=== PATIENT | male | born 1935 | race Caucasian/White ===

== ENCOUNTER 2020-03-08 09:59 | Observation (INO) | payer OTHER ==
[~2020-03-08] VITALS: Ht 180.3 cm; Wt 96.2 kg
[~2020-03-08 09:59] MED LIST: ANT12.5 PO; ASPI-COR81 M3; ASPIR 8181 MG PO; AZOR 10-20 MG1 EACH PO; BENICAR HCT1 TA1 PO; ISOSORBIDE MONO60 MG PO; K-TAB10 MEQ PO; LANTI; LASIX20 MG PO; LIPITOR40 MG PO; METOPROLOL SUC100 M2 PO; NOVI
[2020-03-08 12:02] LABS: PLATELET COUNT 217 x10^3mcL (130-400); RED CELL DISTRIBUTION WIDTH 13.1 % (11.5-14.5)
[2020-03-08 12:17] LABS: microscopic required? YES; urine erythrocyte TRACE (NEGATIVE)
[2020-03-08 13:19] LABS: ALBUMIN 3.4 g/dL (3.4-5.0); ALKALINE PHOSPHATASE 114 U/L (46-116); ALT/SGPT 13 U/L (16-63); AST/SGOT 18 U/L (15-37); BILIRUBIN TOTAL 0.7 mg/dL (0.20-1.00); CALCIUM 9.3 mg/dL (8.5-10.1); CHLORIDE SERUM 102 mmol/L (98-107); CREATININE SERUM 1.1 mg/dL (0.7-1.3); GLUCOSE SERUM 192 mg/dL (74-106); POTASSIUM SERUM 4.3 mmol/L (3.5-5.1); SODIUM SERUM 139 mmol/L (136-145); TOTAL PROTEIN, SERUM 7.3 g/dL (6.4-8.2)
--- NOTE | 2020-03-08 13:25 | NUR ---
PT RESTING IN BED WITH NO SIGNS OF DISTRESS.
--- NOTE | 2020-03-08 14:52 | NUR ---
ATTEMPTED TO CALL REPORT. WILL CALL BACK
--- NOTE | 2020-03-08 15:43 | NUR ---
REPORT CALLED TO SEA MICHAEL. PATIENT TRANSFERRED TO ROOM BY TELEHEALTH DIRECTOR WITH BELONGINGS.
[2020-03-08 15:59] VITALS: BP 191/71
--- NOTE | 2020-03-08 16:15 | NUR ---
DR. STOKES PAGED REGARDING PATIENTS BLOOD PRESSURE AND BLOOD SUGAR CHECKS
--- NOTE | 2020-03-08 16:23 | NUR ---
RECEIVED PATIENT IN BED ALERT AND ORIENTED, C/O BACK PAIN 02/19. NO DISTRESS NOTED. ORIENTED TO CALL LIGHT. MED-SURG PT. CUNHA INTACT W/ YELLOW URINE NOTED, GENO RN IN THE ROOM TO MEDICATE PT FOR PAIN. CALL LIGHT WITHIN REACH.
[2020-03-08 16:33] VITALS: BP 172/76
--- NOTE | 2020-03-08 17:26 | NUR ---
DISCUSSED BLOOD SUGAR CHECKS AND HIGH BLOOD PRESSURE WITH DR. STOKES AT PATIENT'S BEDSIDE.
--- NOTE | 2020-03-08 18:32 | NUR ---
PT LYING IN BED A/A, ORIENTED X4. BREATHING EQUAL/UNLABORED ON RA. MILD PAIN TO BACK. OPTIFOAM TO COCCYX. IV SITE WNL. NO ACUTE CHANGES/DISTRESS. BED IN LOW POSITION, CALL LIGHT IN REACH, SAFETY PRECAUTIONS IN PLACE. WILL CONTINUE TO MONITOR AND ENDORSE TO NIGHT NURSE
[2020-03-08 20:27] VITALS: BP 159/61
--- NOTE | 2020-03-09 03:46 | NUR ---
Pt in bed sleeping He woke up and came out of bed x2 this shift. Encouraged to get back in bed. will continue to monitor
[2020-03-09 05:18] VITALS: BP 139/57
[2020-03-09 07:12] LABS: BASOPHIL % 0.4 % (0-2); PLATELET COUNT 196 x10^3mcL (130-400); RED CELL DISTRIBUTION WIDTH 13.6 % (11.5-14.5)
--- NOTE | 2020-03-09 07:30 | NUR ---
RECEIVED PT FROM NIGHT NURSE. HE C/O 10/10 PAIN IN THE LUMBAR SPINE AREA. HE WAS GIVEN MORPHINE IVP ORDERED PRN. CUNHA CATHETER IN PLACE DRAINING YELLOW URINE. ON 2L O2 NC, SAO2 97%. DENIES SOB AND NO ACUTE RESPIRATORY DISTRESS NOTED. LS DIMINISHED IN BLL. ABLE TO AMBULATE WITH WALKER. LAC IV SITE PATENT AND WNL. SAFETY PRECAUTIONS IN PLACE. WILL CONTINUE TO MONITOR.
[2020-03-09 08:03] LABS: CALCIUM 8.5 mg/dL (8.5-10.1); CHLORIDE SERUM 105 mmol/L (98-107); CREATININE SERUM 1.4 mg/dL (0.7-1.3); GLUCOSE SERUM 151 mg/dL (74-106); POTASSIUM SERUM 4.2 mmol/L (3.5-5.1); SODIUM SERUM 138 mmol/L (136-145)
[2020-03-09 08:05] VITALS: BP 158/57
--- NOTE | 2020-03-09 08:08 | NUR ---
2100 bs- PT REFUSED NOT GIVEN
[2020-03-09 10:07] VITALS: BP 166/55
[2020-03-09 12:21] VITALS: BP 104/48
--- NOTE | 2020-03-09 12:30 | NUR ---
ENDORSED CARE TO NURSE WITHIN UNIT, PT TRANSFERRED TO R/O COVID 19. PT STABLE AT TIME OF TRANSFER. NO DISTRESS NOTED. ORDERS UP TO DATE AT TIME OF TRANSFER.
--- NOTE | 2020-03-09 12:30 | NUR ---
RECIEVED PATIENT FROM NURSE BROCK. PATIENT TRANSFERRED TO SOUTH AND PLACED ON ISOLATION PRECAUTIONS DUE TO PUI STATUS. DR. STOKES HAS PLACED PATIENT ON TELEMETRY MONITORING. SHEET ROCK APPLICATOR 12 APPLIED TO PATIENT. PATIENT IS CURRENTLY ON 2 LITER NASAL CANNULA AND OXYGEN SATURATION IS AT 96%. LUNG SOUNDS DIMINISHED TO BILATERAL LOWER LOBES. PATIENT IS AWAKE ALERT AND ORIENTED X 4. SAFETY PRECAUTIONS IN PLACE. CALL LIGHT WITHIN REACH. WILL CONTINUE TO PROVIDE CARE FOR PATIENT.
[2020-03-09 17:26] VITALS: BP 110/53
--- NOTE | 2020-03-09 18:32 | NUR ---
PATIENT CURRENTLY AWAKE ALERT AND ORIENTED X 4. PATIENT IS CURRENTLY ON ISOLATION PRECAUTIONS DUE TO RULE OUT COVID STATUS. PATIENT SWABBED FOR COVID-19 TODAY PER PHYSICIAN ORDER. CURRENTLY PENDING COVID-19 TEST RESULTS. PATIENT IS ON TWO LITER NASAL CANNULA AND IS SATURATING AT 96% ON TWO LITER. LUNG SOUNDS DIMINISHED TO BILATERAL LOWER LOBES. IV TO THE LEFT AC CURRENTLY SALINE LOCKED. PATIENT HAS GENERALIZED BACK PAIN AND WAS ADMINISTERED MEDICATION PER EMAR FOR PAIN. SAFETY PRECAUTIONS IN PLACE. CALL LIGHT WITHIN REACH. ALL QUESTIONS AND CONCERNS ADDRESSED. WILL ENDORSE ALL FURTHER CARE TO THE NOC NURSE.
--- NOTE | 2020-03-09 19:50 | NUR ---
PATIENT RESTING IN BED, A/O X4, VERBALLY RESPONSIVE, DENIES DIZZINESS. BREATHING E/U ON 2L NC, SPO2 97%, DENIES SOB AND COUGHING @ THIS TIME, ON DROPLET/CONTACT PRECAUTIONS FOR R/O COVID, COVID TEST SWAB TAKEN EARLIER TODAY, COVID TEST RESULT STILL PENDING. TELE #12, SR, HR 64, DENIES CHEST PAIN. ABD SOFT AND ROUND. NO EDEMA NOTED. CUNHA IN PLACE, DRAINNIG 150ML OF DARK SHAHRAM URINE @ THIS TIME. C/O OF 10/10 LOWER BACK PAIN, WILL GIVE MORPHINE PRN PER EMAR. IV LAC INTACT, FLUSHED AND SALINE LOCKED. CALL LIGHT WITHIN REACH, BED IN LOWEST POSITION. WILL CONTINUE TO MONITOR.
[2020-03-09 20:04] VITALS: BP 126/52
--- NOTE | 2020-03-09 20:14 | NUR ---
ENDORSED CARE TO NURSE WITHIN UNIT, PT TRANSFERRED TO R/O COVID 19. PT AAOX4 AND ABLE TO AMBULATE WITH ASSISTANCE. ON 2L O2 VIA NC. NO ACUTE DISTRESS NOTED. ORDERS UP TO DATE AT TIME OF TRANSFER.
--- NOTE | 2020-03-10 00:40 | NUR ---
PATIENT RESTING IN BED WITH EYES CLOSED. EVEN CHEST RISE AND FALL, ON 2L NC, SPO2 97%. TELE # 12, HR 82, SINUS RHYTHM. SHOWS NO SIGN OF PAIN OR DISTRESS. WILL CONTINUE MONITOR.
--- NOTE | 2020-03-10 01:35 | NUR ---
PATIENT C/O OF 10/10 LOWER BACK PAIN, WILL GIVE MORPHINE PRN PER EMAR.
[2020-03-10 06:14] VITALS: BP 137/62
[2020-03-10 06:21] LABS: BASOPHIL % 0.4 % (0-2); PLATELET COUNT 185 x10^3mcL (130-400); RED CELL DISTRIBUTION WIDTH 13.4 % (11.5-14.5)
--- NOTE | 2020-03-10 06:30 | NUR ---
PATIENT RESTING IN BED, BREATHING E/U ON 2L NC, SPO2 97%, DENIES SOB, ON DROPLET CONTACT PRECAUTIONS FOR R/O COVID, COVID TEST RESULT STILL PENDING. C/O OF LOWER BACK PAIN GAVE MORPHINE @ 0630. CUNHA IN PLACE, NO KINKS OR DEPENDENT LOOPS, PERFORMED CUNHA CARE, DRAINED 400 ML DARK SHAHRAM URINE. CALL LIGHT WITHIN REACH, NO SIGNFICANT CHANGES DURING SHIFT. WILL ENDORSE CARE TO DAY NURSE.
--- NOTE | 2020-03-10 07:09 | NUR ---
RECIEVED REPORT FROM [facility] NURSE. PATIENT CURRENTLY ON ISOLATION PRECAUTIONS PENDING COVID-19 TEST RESULTS. PATIENT IS OBSERVED RESTING IN BED. RESPIRATIONS EQUAL AND UNLABORED WITH SYMMETRICAL CHEST RISE AND FALL. PATIENT IS CURRENTLY ON ROOM AIR. OXYGEN SATURATION AT 94%. IV TO THE LAC CURRENTLY SALINE LOCKED. NO SIGNS/OR SYMPTOMS OF PAIN AT THIS TIME. SAFETY PRECAUTIONS IN PLACE. BED IN THE LOW POSITION. WILL CONTINUE TO PROVIDE CARE FOR PATIENT.
[2020-03-10 08:29] VITALS: BP 137/78
[2020-03-10 09:46] LABS: CALCIUM 8.4 mg/dL (8.5-10.1); CARBON DIOXIDE 24.6 mmol/L (21-32); CHLORIDE SERUM 103 mmol/L (98-107); CREATININE SERUM 1.9 mg/dL (0.7-1.3); GLUCOSE SERUM 150 mg/dL (74-106); POTASSIUM SERUM 4.5 mmol/L (3.5-5.1); SODIUM SERUM 137 mmol/L (136-145)
[2020-03-10 10:29] VITALS: Ht 180.3 cm; Wt 96.2 kg
[2020-03-10 11:39] VITALS: BP 137/67
--- NOTE | 2020-03-10 15:13 | NUR ---
PATIENT TAKEN DOWN FOR CT SCAN OF BACK. COVID TEST RESULT CAME BACK NEGATIVE TODAY. DR. STOKES AWARE.
--- NOTE | 2020-03-10 16:00 | NUR ---
PATIENT BACK IN ROOM FROM CT.
[2020-03-10 16:23] VITALS: BP 141/60
--- NOTE | 2020-03-10 17:26 | NUR ---
PATIENT CURRENTLY AWAKE ALERT AND ORIENTED X 4. COVID-19 TEST RESULT RETURNED NEGATIVE TODAY. DR. STOKES AWARE- NO CHANGE IN ORDERS. PATIENT RECIEVED CT OF BACK TODAY DUE TO REPORT OF PERSISTENT BACK PAIN. PATIENT PROVIDED WITH PAIN MEDICATION PER EMAR. PATIENT REMAINS ON 2 LITER NASAL CANNULA AND IS SATURATING WELL AT 99%. PATIENT REMAINS ON ZITHROMAX IV. BED IN THE LOW POSITION. FALL PRECAUTIONS IN PLACE. WILL ENDORSE ALL FURTHER CARE TO THE NOC NURSE.
--- NOTE | 2020-03-10 20:00 | NUR ---
PATIENT RESTING IN BED, A/O X4, VERBALLY RESPONSIVE. BREATHING E/U ON 2L NC, SPO2 98%, DENIES SOB, NEGATIVE COVID TEST RESULT. TELE #12, SR WITH BBB, HR 60, DENIES CHEST PAIN. OPTIFOAM @ [facility]. CUNHA INTACT, DRAINING YELLOW URINE, NO KINKS OR DEPENDENT LOOPS, C/O OF LOWER BACK PAIN, WILL GIVE PAIN MEDICATION PRN. IV LAC INTACT, FLUSHED AND SALINE LOCKED. CALL LIGHT WITHIN REACH, BED IN LOWEST POSITION. WILL CONTIUE TO MONITOR.
--- NOTE | 2020-03-10 21:15 | NUR ---
PATIENT HAS NEGATIVE COVID TEST RESULT, PATIENT TO BE TRANSFERRED TO ROOM [address] [place] [address]. GAVE REPORT TO ALEC BUI.
--- NOTE | 2020-03-10 21:25 | NUR ---
PATIENT TRANSFERRED TO [address] [place] ROOM [address].
--- NOTE | 2020-03-10 21:30 | NUR ---
PT RECIEVED FROM 2S. PT IN A POSITION OF COMFORT AT THIS TIME. DENIES PAIN OR DISCOMFORT. PT BREATHING E/U ON RA AT THIS TIME. BED AT LOWEST POSITION. CALL LIGHT WITHIN REACH. WILL CONTINUE TO MONITOR.
[2020-03-10 21:37] VITALS: BP 141/59
--- NOTE | 2020-03-11 | NUR ---
PT RESTING IN BED AT THIS TIME. DENIES PAIN OR DISCOMFORT. PT BREATHING E/U ON RA. NO S/S OF ACUTE DISTRESS AT THIS TIME. WILL CONTINUE TO MONITOR.
--- NOTE | 2020-03-11 03:47 | NUR ---
PT REFUSING TELE MONITORING AT THIS TIME. EDUCATED PT ON NEED FOR TELE MONITOR. PT CONTINUING TO REFUSE AT THIS TIME.
[2020-03-11 05:31] VITALS: BP 145/76
--- NOTE | 2020-03-11 06:22 | NUR ---
PT RESTING IN BED AT THIS TIME. PT HAD ONE EPISODE OF EMESIS AT THIS TIME. NO S/S OF ACUTE DISTRESS NOTED. ALL NEEDS AND CONCERNS ADDRESSED. PT PLACED ON 2L O2 AT THIS TIME. STILL REFUSING TELE MONITORING. WILL ENDORSE TO DAY NURSE.
--- NOTE | 2020-03-11 08:15 | NUR ---
RECEIVED PT. IN BED A/A/O X3. NO SOB, NO N/V NOTED. PT. DENIES ANY PAIN AT THIS TIME. IV SITE NOTED TO L AC. BED IN LOW POS., CALL LIGHT WITHIN REACH. SIDE RAILS UP X3.
[2020-03-11 08:18] LABS: BASOPHIL % 0.1 % (0-2); PLATELET COUNT 220 x10^3mcL (130-400)
[2020-03-11 08:23] LABS: CALCIUM 8.8 mg/dL (8.5-10.1); CARBON DIOXIDE 25.4 mmol/L (21-32); CHLORIDE SERUM 102 mmol/L (98-107); CREATININE SERUM 1.5 mg/dL (0.7-1.3); GLUCOSE SERUM 243 mg/dL (74-106); POTASSIUM SERUM 4.6 mmol/L (3.5-5.1); SODIUM SERUM 136 mmol/L (136-145)
[2020-03-11 08:59] VITALS: BP 176/69
[2020-03-11 10:58] VITALS: BP 152/70
[2020-03-11] MEDS ORDERED: ZIT250 PO (11:52)
[2020-03-11] MEDS ORDERED: ACETAMINOPHEN-H1 TA1 PO (11:54)
[2020-03-11 13:29] VITALS: BP 167/64
--- NOTE | 2020-03-11 15:00 | NUR ---
PT. IS BEING DISCHARGED HOME TODAY. SPOKE TO PT.'S CARE-IT SECURITY ADMINISTRATOR (CHUCHO) OVER THE PHONE REGARDING PT. BEING DISCHARGED HOME TODAY. CHUCHO STATED SHE WILL COME BETWWEN 5 AND 6 PM TO PICK PT. UP.
--- NOTE | 2020-03-11 17:30 | NUR ---
D/C HOME INSTRUCTIONS GIVEN TO PT. WHO VERBALIZED UNDERSTANDING. IV H/L TO L AC REMOVED. PRESCRIPTIONS GIVEN. TELE. MONITOR #12 REMOVED AND RETURNED TO TELE. MONITOR STATION. ALSO SPOKE TO PT.'S DAUGHTER KARYN JORDAN REGARDING PT.'S DISCHARGE INSTRUCTIONS OVER THE PHONE. DAUGHTER WAS MADE AWARE THAT PT. ALSO HAS A FOLLOW UP APPOINMENT WITH HIS PHYSICIAN ON 03/23/20 AFTER DISCHARGE. DAUGHTER VERBALIZED UNDERSTANDING.
[2020-03-11 17:53] VITALS: BP 143/66
--- NOTE | 2020-03-11 18:35 | NUR ---
PT.'S CARE-MALTHOUSE LABORER (CHUCHO) ARRIVED AT THE MAIN LOBBY. PT. IS BEING DISCHARGED IN STABLE CONDITION VIA WHEELCHAIR. ALL BELONGINGS SENT HOME WITH PT. UPON DISCHARGE.
== END 2020-03-11 18:35 | disposition home or self-care (01) ==
LOC: ED 09:59 → MU 13:49 → DU 03-09 12:43 → MU 03-09 12:51 → DU 03-09 13:38
PROVIDERS: Emergency Medicine; ADMIT Internal Medicine; ATTEND Internal Medicine
DX: M54.9 Dorsalgia, unspecified (principal); M47.816 Spondylosis without myelopathy or radiculopathy, lumbar region; J18.9 Pneumonia, unspecified organism; I10 Essential (primary) hypertension; E11.9 Type 2 diabetes mellitus without complications; Z20.828 Contact with and (suspected) exposure to other viral communicable diseases
CPT/HCPCS: 82962; 85378; G0378; J0456; J1650; J1815; J2270; J2405; J7030; J7050; J7512; Q0092; U0003-CS

== ENCOUNTER 2020-03-19 23:40 | Emergency (ER) | payer OTHER ==
[~2020-03-19] VITALS: Ht 180.3 cm; Wt 99.8 kg
[~2020-03-19 23:40] MED LIST changes: +ACETAMINOPHEN-H1 TA1 PO; +ZIT250 PO
[2020-03-19 23:53] VITALS: Ht 180.3 cm; Wt 99.8 kg
[2020-03-20 06:01] VITALS: BP 145/74
== END 2020-03-20 06:01 | disposition home or self-care (01) ==
LOC: ED 23:40
DX: K59.00 Constipation, unspecified (principal); F11.90 Opioid use, unspecified, uncomplicated; I10 Essential (primary) hypertension; E11.9 Type 2 diabetes mellitus without complications; I25.2 Old myocardial infarction; Z86.73 Personal history of transient ischemic attack (TIA), and cerebral infarction without residual deficits; Z88.0 Allergy status to penicillin
CPT/HCPCS: J7030; Q0092